=== PATIENT | male | born 1955 | race Two or more races ===

== ENCOUNTER 2017-12-13 06:58 | Day surgery (SDC) | payer BC ==
[2017-12-12 09:34] LABS: BASOPHILS % (AUTO) 0.4 % (0-1); EOSINOPHILS # (AUTO) 0.6 X10'3 (0-0.9); EOSINOPHILS % (AUTO) 9.5 % (0-6); HEMATOCRIT 47.8 % (42.0-52.0); HEMOGLOBIN 16.2 g/dl (14.0-17.9); LYMPHOCYTES # (AUTO) 1.7 X10'3 (1.1-4.8); LYMPHOCYTES % (AUTO) 27.8 % (21-51); MEAN CORPUSCULAR HEMOGLOBIN 30.7 PG (27.0-31.0); MEAN CORPUSCULAR HGB CONC 33.9 % (33.0-36.5); MEAN CORPUSCULAR VOLUME 90.6 FL (78-98); MEAN PLATELET VOLUME 8.1 FL (7.4-10.4); MONOCYTES # (AUTO) 0.3 X10'3 (0-0.9); MONOCYTES % (AUTO) 5.2 % (2-12); NEUTROPHILS # (AUTO) 3.5 X10'3 (1.8-7.7); NEUTROPHILS % (AUTO) 57.1 % (42-75); PLATELET COUNT 222 X10'3 (140-440); RED BLOOD COUNT 5.28 X10'6 (4.70-6.10); RED CELL DISTRIBUTION WIDTH 13.2 % (11.5-14.5); WHITE BLOOD COUNT 6.2 X10'3 (4.5-11.0)
[2017-12-12 09:45] LABS: PARTIAL THROMBOPLASTIN TIME 27 SECONDS (22-32)
[2017-12-12 09:49] LABS: ALBUMIN 4.1 G/DL (3.4-5.0); ANION GAP 3 (8-16); BLOOD UREA NITROGEN 10 MG/DL (7-18); BUN/CREATININE RATIO 9.9 (5.4-32.0); CALCIUM 9.5 MG/DL (8.5-10.1); CHLORIDE 106 MMOL/L (99-107); CREATININE 1.01 MG/DL (0.60-1.10); GLUCOSE 90 MG/DL (70-104); POTASSIUM 4.4 MMOL/L (3.5-5.1); SODIUM 141 MMOL/L (135-145); TOTAL CARBON DIOXIDE 31.6 MMOL/L (24-32); eGFR 75 ML/MIN
[2017-12-13] VITALS (13 sets, daily range): BP systolic 113–146; BP diastolic 74–86
[~2017-12-13] VITALS: Ht 170.2 cm; Wt 76.8 kg
[~2017-12-13 06:58] MED LIST: CARV6.253 PO; DEXL60CA3 PO; ISOS30TA6 PO; MAGN500C16 PO; MULT-1074 PO; SACU1TAB PO; SIMV20TA5 PO; TRAV5DRO EACHEYE
[2017-12-13] MEDS ORDERED: normal saline 1000ml 1,000 ML IV SCH (07:20)
[2017-12-13] MEDS ORDERED: LORazepam 0.5 MG tablet PO PRN (07:20)
[2017-12-13] MEDS ORDERED: diphenhydrAMINE 25mg capsule PO PRN (07:20)
[2017-12-13] MEDS ORDERED: AMIO200T27 (08:00)
[2017-12-13] MEDS ORDERED: iohexol 350 MG/ML 50ML vial IV ONE (08:34)
[2017-12-13] MEDS ORDERED: iohexol 350MG/ML 100ml bottle IV ONE (08:34)
[2017-12-13] MEDS ORDERED: midazolam 2 mg/2 ml injection ONE (08:34)
[2017-12-13] MEDS ORDERED: LIDOcaine 1%/PF (10mg/ml) 5ml vial ONE (08:34)
[2017-12-13] MEDS ORDERED: fentaNYL/PF 50MCG/1 ML 2ML syringe ONE (08:34)
[2017-12-13] MEDS ORDERED: nitroGLYCERIN-Tridil 50MG/D5W 250 ML IV ONE (09:12)
[2017-12-13] MEDS ORDERED: heparin 1,000unit/ml 10ml vial 10 ML ONE (09:12)
[2017-12-13 15:16] LABS: ISTAT Hct MIX 41 %PCV (42-52); ISTAT O2 SATURATION MIX VENOUS 74 % (60-80); ISTAT SOURCE MIX
[2017-12-13 15:16] LABS: ISTAT HGB ART 14.6 g/dl (14.0-18.0); ISTAT Hct ART 43 %PCV (42-52); ISTAT O2 SATURATION ARTERIAL 98 % (95-98); ISTAT SOURCE ART
== END 2017-12-13 17:00 | disposition home or self-care (01) ==
LOC: SSTAY O 06:58
PROVIDERS: ATTEND Internal Medicine Cardiovascular Disease
DX: I25.10 Atherosclerotic heart disease of native coronary artery without angina pectoris (principal); E78.5 Hyperlipidemia, unspecified; I42.0 Dilated cardiomyopathy; I11.0 Hypertensive heart disease with heart failure; I50.22 Chronic systolic (congestive) heart failure; K21.9 Gastro-esophageal reflux disease without esophagitis; I48.91 Unspecified atrial fibrillation; Z90.89 Acquired absence of other organs; Z95.810 Presence of automatic (implantable) cardiac defibrillator; Z98.890 Other specified postprocedural states; Z79.899 Other long term (current) drug therapy; Z72.89 Other problems related to lifestyle; Z88.8 Allergy status to other drugs, medicaments and biological substances
CPT/HCPCS: 36415; 80048; 82803; 85014; 85025; 85610; 85730; 93005; 93460; 99152; 99153; A6257; C1760; J1644; J2001; J2250; J3010; J3490; J7030; Q0163; Q9967; 93567; A4620